=== PATIENT | male | born 1945 | race Caucasian/White ===

== ENCOUNTER 2019-07-14 05:40 | Inpatient (IN) ==
[2019-07-09 13:44] LABS: Appearance,Urine CLEAR; Bilirubin,Urine NEG (NEG); Color,Urine YELLOW; Culture Indicated,Urine NO; Glucose,Urine (UA) NEGATIVE (NEG); Ketones,Urine NEG (NEG); Leukocyte Esterase,Urine NEG /uL (NEG); Nitrate,Urine NEG (NEG); Protein,Urine NEG (NEG); Specific Gravity,Urine 1.026 (1.000-1.035); Urine Blood NEG mg/dL (<0.03); Urobilinogen,Urine NEG (NEG)
[2019-07-09 15:05] LABS: Basophils # (Auto) 0 K/mcL (0.0-0.3); Basophils % (Auto) 0.6 % (0.0-2.0); Eosinophils # (Auto) 0.2 K/mcL (0.0-0.7); Eosinophils % (Auto) 2.1 % (0.0-7.0); Hematocrit 42.2 % (41.0-55.0); Hemoglobin 13.8 g/dL (13.5-16.5); Lymphocytes # (Auto) 1.7 K/mcL (1.5-4.8); Lymphocytes % (Auto) 20.8 % (15.5-49.0); Mean Cell Volume 94.7 fL (80.0-100.0); Mean Corpuscular HGB Conc 32.8 g/dL (31.0-36.0); Mean Platelet Volume 10.3 fL (7.4-10.4); Monocytes # (Auto) 0.5 K/mcL (0.1-0.9); Monocytes % (Auto) 6.5 % (1.0-12.0); Platelet Count 206 K/mcL (140-440); RBC 4.45 M/mcL (4.50-5.90); Red Cell Distribution Width 12.5 % (11.5-14.5)
[2019-07-09 16:29] LABS: proBNP 794.6 pg/ml (0-125)
[2019-07-09 16:40] LABS: Blood Urea Nitrogen 25 mg/dl (8-23); Carbon Dioxide 26 mmol/L (22-30); Chloride 101 mmol/L (96-108); Glomerular Filtration Rate 66; Glucose 105 mg/dL (70-105)
[2019-07-14] MEDS ORDERED: SCOPOLAMINE 1 PATCH PATCH TOPICAL PRN (06:00)
[2019-07-14] MEDS ORDERED: PREGABALIN 75 MG CAPSULE PO SCH (06:00)
[2019-07-14] MEDS ORDERED: IPRATROPIUM/ALBUTEROL 3 ML AMPUL.NEB NEB PRN ×2 (06:00→09:34)
[2019-07-14] MEDS ORDERED: 0.9 % SODIUM CHLORIDE 9 ML, KETOROLAC 30 MG, ROPIVACAINE HCL/PF 49.5 ML, EPINEPHrine 0.... IJ SCH (06:00)
[2019-07-14] MEDS ORDERED: ACETAMINOPHEN 500 MG TABLET PO SCH (06:00)
[2019-07-14] MEDS ORDERED: oxyCODONE 10 MG TAB.ER.12H PO SCH (06:00)
[2019-07-14] MEDS ORDERED: CELECOXIB 200 MG CAPSULE PO SCH (06:00)
[2019-07-14] MEDS ORDERED: ceFAZolin 2 GM in DEXTROSE 5% IN WATER 50 ML IV SCH ×2 (06:15→17:30)
[2019-07-14] MEDS ORDERED: ONDANSETRON 4 MG/2 ML VIAL IV ONE (08:50)
[2019-07-14] MEDS ORDERED: DEXAMETHASONE 10 MG/ML VIAL IV ONE (08:50)
[2019-07-14] MEDS ORDERED: PROPOFOL 200 MG/20 ML VIAL IV ONE (08:50)
[2019-07-14] MEDS ORDERED: GLYCOPYRROLATE 0.2 MG/ML VIAL IV ONE (08:50)
[2019-07-14] MEDS ORDERED: KETAMINE 100 MG/ML ML IV ONE (08:50)
[2019-07-14] MEDS ORDERED: ePHEDrine 50 MG/ML AMPUL IV ONE (08:50)
[2019-07-14] MEDS ORDERED: TRANEXAMIC ACID 1,000 MG/10 ML VIAL IV ONE (08:50)
[2019-07-14] MEDS ORDERED: PHENYLEPHRINE 10 MG/ML VIAL IV ONE (08:50)
[2019-07-14] MEDS ORDERED: GENTAMICIN SULFATE 800 MG/20 ML VIAL IR ONE (09:13)
[2019-07-14] MEDS ORDERED: LACTATED RINGERS 250 ML IV PRN (09:34)
[2019-07-14] MEDS ORDERED: BENZOCAINE/MENTHOL 1 LOZENGE PO PRN ×2 (09:34→10:10)
[2019-07-14] MEDS ORDERED: FLUMAZENIL 0.1 MG/ML ML IV PRN (09:34)
[2019-07-14] MEDS ORDERED: NALOXONE HCL 0.4 MG/ML VIAL IV PRN (09:34)
[2019-07-14] MEDS ORDERED: METHOCARBAMOL 1,000 MG/10 ML VIAL IV PRN (09:34)
[2019-07-14] MEDS ORDERED: LABETALOL 5 MG/ML ML IV PRN (09:34)
[2019-07-14] MEDS ORDERED: METOPROLOL TARTRATE 5 MG/5 ML VIAL IV PRN (09:34)
[2019-07-14] MEDS ORDERED: ONDANSETRON 4 MG/2 ML VIAL IV PRN ×2 (09:34→10:10)
[2019-07-14] MEDS ORDERED: LACTATED RINGERS 1,000 ML IV SCH (09:45)
--- NOTE | 2019-07-14 10:09 | Brief Operative Note ---
Date of procedure: 07/14/19 Pre-op diagnosis: right hip djd severe Post-op diagnosis: same Procedure: Right total hip Grafts/Implants: Yes Anesthesia: ALFREDA Surgeon: Tc Singletary Rewriter: Berto Hanson Estimated blood loss (cc): 100 Specimens Removed/Pathology: none sent Condition: stable Disposition: PACU
[2019-07-14] MEDS ORDERED: POLYETHYLENE GLYCOL 3350 17 GM PACKET PO PRN (10:10)
[2019-07-14] MEDS ORDERED: BISACODYL 10 MG SUPP.RECT PR PRN (10:10)
[2019-07-14] MEDS ORDERED: TRANEXAMIC ACID 1,000 MG/10 ML VIAL IV SCH (10:10)
[2019-07-14] MEDS ORDERED: HYDROmorphone 2 MG/ML VIAL IV PRN (10:10)
[2019-07-14] MEDS ORDERED: oxyCODONE/APAP 5/325MG TABLET PO PRN (10:10)
[2019-07-14] MEDS ORDERED: MAGNESIUM HYDROXIDE 30 ML ORAL.SUSP PO PRN (10:10)
[2019-07-14] MEDS ORDERED: FLEETS ADULT ENEMA PR PRN (10:10)
--- NOTE | 2019-07-14 10:18 | XRay Report ---
CLINICAL INFORMATION: right total hip arthroplasty COMPARISON: None. FINDINGS: The intraoperative film shows femoral stem template and prosthetic acetabulum to the anatomically aligned. There is severe degenerative change in the nonsurgerized contralateral hip IMPRESSION: Intraoperative film as described Interpreted and Authenticated by: Nate Bower 07/14/19
[2019-07-14] MEDS: LACTATED RINGERS 1,000 ML IV SCH ×3 (11:09→21:42)
--- NOTE | 2019-07-14 11:18 | XRay Report ---
CLINICAL INFORMATION: Post-op Total Hip COMPARISON: None. FINDINGS: Right total hip prosthesis is in near anatomic alignment. Severe left hip degeneration noted. Mild degenerative changes both SI joints appreciated. No osseous abnormalities. IMPRESSION: Right hip prosthesis in near-anatomic alignment severe left hip degeneration Interpreted and Authenticated by: Nate Bower 07/14/19
--- NOTE | 2019-07-14 11:44 | Discharge Summary ---
Ortho Discharge - [facility] - Patient Instructions Diet: Regular Diet Activity: activity as tolerated, weight bearing as tolerated Total Hip Protocol: Follow activity instructions as provided by Physical Therapy. Dressing Care: May shower in 2 days - Follow Up Plan Disposition: Home, Self-Care Prognosis: Good Rehab Potential: Fair I certify that the patient requires SNF services: Yes Overall status at discharge: patient is progressing back to baseline - Orders For Discharge Prescriptions: Docusate Sodium [Colace] 100 mg PO BID #60 capsule Aspirin [Ecotrin] 325 mg PO BID #60 tab.ec oxyCODONE/APAP [Percocet 5-325 mg] 1 - 2 tab PO Q4HP PRN #75 tablet PRN Reason: Per Pain Protocol
[2019-07-14] MEDS: 0.9 % SODIUM CHLORIDE 10 ML SYRINGE IV SCH ×2 (14:17→21:44)
--- NOTE | 2019-07-14 15:52 | Operative Note ---
DATE OF OPERATION: 07/14/2019 PREOPERATIVE DIAGNOSIS: Right hip degenerative arthritis, severe. POSTOPERATIVE DIAGNOSIS: Right hip degenerative arthritis, severe. PROCEDURE: Right total hip arthroplasty. SURGEON: Tc Singletary M.D. REFLECTOR DRILLER AND DEBURRER: Berto Hanson PA-C. The PA's assistance was required for the safe and efficient completion of the entire case. This provider's expertise and technical skill were required throughout the case. The PA assisted with preoperative coordination, intraoperative retraction, wound closure, dressing and splint application, as well as postoperative documentation and care coordination. ANESTHESIA: General LMA anesthesia. COMPLICATIONS: None. ESTIMATED BLOOD LOSS: About 100 mL. DESCRIPTION OF PROCEDURE: The patient was brought to the operating room and put to sleep with general LMA anesthesia. Once asleep, the patient had the right hip sterilely prepped and draped in the usual sterile fashion and turned into a left lateral position. Once this was done, we made a superior approach to the hip. A direct superior approach was performed. We released the superior capsule, dislocated the hip superiorly. There was severe deformity of the femoral head and a significant shortening of the leg as well. We then reamed up the acetabulum to a 56. A 56 cup was placed with a 30 mm screw with good fixation. A hooded liner was placed. We then prepared the femur. This was broached up for a size 12 stem. A size 12 stem with high offset and a 36 mm +6 neck length seemed to be the most appropriate, equaling his tension on his hip. This was very stable. We took an x-ray to confirm the alignment. It lengthened him longer than his other side, but his other side is worn out by about 1/4-inch as well, so we proceeded with the final implant. Final implant was then placed with a small amount of cement on the distal fragment. This was a size 12 ODC stem with a high-offset +6 ceramic 36 mm head. This was reduced and very stable. We irrigated thoroughly and stability was up to 90 degrees of rotation with 90 degrees of flexion. We irrigated and closed the capsule after thorough debridement and repair of the capsule with #1 Stratafix. We closed the skin with Stratafix and adhesive closure. The patient tolerated this well. Blood loss was about 100 mL. RBSarah:chele Job ID: [id number] Doc ID: [id number] Tc Singletary MD
[2019-07-14] MEDS ORDERED: TEMAZEPAM 15 MG CAPSULE PO PRN (21:00)
[2019-07-14] MEDS: ATORVASTATIN 20 MG TABLET PO SCH (21:20)
[2019-07-14] MEDS: SENNOSIDES 1 TABLET PO SCH (21:20)
[2019-07-14] MEDS: ASPIRIN 325 MG ENTERIC COATED TABLET PO SCH (21:21)
[2019-07-14] MEDS: ceFAZolin 1 GM VIAL IV SCH (21:21)
[2019-07-14] MEDS: DOCUSATE SODIUM 100 MG CAPSULE PO SCH (21:21)
[2019-07-14] MEDS: diphenhydrAMINE 25 MG CAPSULE PO PRN (21:21)
[2019-07-14] MEDS: KETOROLAC 15 MG/ML VIAL IV PRN (21:22)
[2019-07-15] MEDS: ceFAZolin 1 GM VIAL IV SCH (03:57)
--- NOTE | 2019-07-15 07:27 | Orthopedic Progress Note ---
Subjective Patient information: Note initiated : 07/15/19 at 7:26 am Service Date, if different from initiated Date: [] Patient: Jose Singh 74 y/o M admitted on 07/14/19 for Right Total Hip Arthroplasty. Chief Complaint: [Pt is stable this morning on post operative day 1 without any significant concerns or complaints. Patients vital signs have remained stable. Patients dressing is dry and is grossly intact from a neurovascular and motor standpoint. Patients 10 point ROS is otherwise negative. ] Objective Vital signs: Vital Signs Temp Pulse Resp BP BP Pulse Ox 07/15/19 07:04 98.2 F 81 16 108/65 95 07/15/19 06:00 95 07/15/19 03:03 98.3 F 83 20 102/67 95 07/15/19 02:35 93 07/14/19 22:26 97.4 F 88 20 93/61 93 07/14/19 19:23 18 07/14/19 19:07 98.0 F 102 H 22 96/63 94 07/14/19 16:00 97.4 F 97 H 18 110/74 94 07/14/19 14:00 94 07/14/19 12:48 102 H 112/74 95 07/14/19 12:18 103 H 108/65 95 07/14/19 12:03 94 07/14/19 11:47 100 H 106/73 90 07/14/19 11:33 99 H 111/72 91 07/14/19 11:18 89 100/65 96 07/14/19 11:03 94 H 105/70 94 07/14/19 10:45 98.0 F 89 13 108/63 96 07/14/19 10:30 98.2 F 92 H 17 102/62 98 07/14/19 10:25 82 12 110/64 100 07/14/19 10:20 81 11 L 114/67 100 07/14/19 10:15 98.7 F 91 H 14 113/65 98 Intake and Output 07/14/19 07/15/19 07/15/19 21:59 05:59 13:59 Intake Total 1690 685 Output Total 80 Balance 1690 605 Intake: IV 410 Lactated Ringers 1,000 ml @ 100 410 mls/hr IV .Q10H [facility] Rx#: [id number] Oral 1280 685 Output: Void Amount 80 Other: Meal Dinner Percent of Meal Consumed 100% Feeding Ability Independent Urine Appearance Clear Urine Color Dark Yellow Weight 201 lb 189 lb Intake & Output: Intake & Output 07/14/19 07/15/19 07/15/19 21:59 05:59 13:59 Intake Total 1690 685 Output Total 80 Balance 1690 605 Weight 201 lb 189 lb Intake: IV 410 Lactated Ringers 1,000 ml @ 100 410 mls/hr IV .Q10H [facility] Rx#: [id number] Oral 1280 685 Output: Void Amount 80 Other: Meal Dinner Percent of Meal Consumed 100% Feeding Ability Independent Urine Appearance Clear Urine Color Dark Yellow Incision: Yes healing Incision clean and dry: Yes Dressing: Yes clean Weight bearing status: full Neurological exam IM: Yes motor sensory intact, Yes neurovascular intact Extremities exam IM: Yes Foot pink and warm, Yes neurovascular intact - Labs CBC & BMP: 07/15/19 04:25 07/09/19 11:28 Labs: 07/15/19 07/09/19 04:25 11:28 Hgb 13.8 Hct 32.3 L 42.2 Assessment and Plan (1) Hx of total hip arthroplasty The patient has been educated regarding dressing care, Physical Therapy recommendations, home exercises, restrictions, and follow up appointments. The patient has had all necessary DME prescribed. The patient has remained relatively stable during their hospital course. Leave Dermabond patch intact until followup Status: Acute
[2019-07-15] MEDS: FERROUS SULFATE 325 MG TABLET PO SCH (08:10)
[2019-07-15] MEDS: LACTATED RINGERS 1,000 ML IV SCH ×2 (08:46→15:50)
[2019-07-15] MEDS: 0.9 % SODIUM CHLORIDE 10 ML SYRINGE IV SCH ×3 (08:47→21:18)
[2019-07-15] MEDS ORDERED: ACETAMINOPHEN 1300 MG PO SCH (09:00)
[2019-07-15] MEDS ORDERED: ASPIRIN 325 MG PO SCH (09:00)
[2019-07-15] MEDS: DOCUSATE SODIUM 100 MG CAPSULE PO SCH ×2 (09:10→20:09)
[2019-07-15] MEDS: ASPIRIN 325 MG ENTERIC COATED TABLET PO SCH ×2 (09:10→20:09)
[2019-07-15] MEDS: FAMOTIDINE 20 MG TABLET PO SCH (09:10)
[2019-07-15] MEDS: DILTIAZEM 120 MG CAP.XL.24H PO SCH (09:10)
[2019-07-15] MEDS: FUROSEMIDE 40 MG TABLET PO SCH (09:11)
[2019-07-15] MEDS ORDERED: FLU VACC QS2019-20(6MOS UP)/PF 60 MCG/0.5 ML SYRINGE IM ONE (10:00)
[2019-07-15] MEDS: CALCIUM CARBONATE 500 MG TAB.CHEW PO PRN (13:57)
[2019-07-15] MEDS: ATORVASTATIN 20 MG TABLET PO SCH (20:09)
[2019-07-15] MEDS: ACETAMINOPHEN 325 MG TABLET PO PRN (20:09)
[2019-07-15] MEDS: SENNOSIDES 1 TABLET PO SCH (20:09)
[2019-07-15] MEDS: diphenhydrAMINE 25 MG CAPSULE PO PRN (20:10)
[2019-07-15] MEDS: KETOROLAC 15 MG/ML VIAL IV PRN (20:10)
--- NOTE | 2019-07-16 07:54 | Orthopedic Progress Note ---
Subjective Patient information: Note initiated : 07/16/19 at 7:53 am Service Date, if different from initiated Date: [] Patient: Jose Singh 74 y/o M admitted on 07/14/19 for Right Total Hip Arthroplasty. Chief Complaint: [Pt is stable this morning on post operative day 2 without any significant concerns or complaints. Patients vital signs have remained stable. Patients dressing is dry and is grossly intact from a neurovascular and motor standpoint. Patients 10 point ROS is otherwise negative. ] Objective Vital signs: Vital Signs Temp Pulse Resp BP BP Pulse Ox 07/16/19 03:41 98.1 F 80 22 113/69 96 07/16/19 00:31 97.7 F 75 20 107/70 95 07/15/19 18:46 97.9 F 77 24 H 96/66 97 07/15/19 17:30 96 07/15/19 15:42 98 07/15/19 15:40 97.3 F 82 20 102/60 97 07/15/19 14:00 97 07/15/19 12:00 99 07/15/19 10:50 97.9 F 76 18 100/64 96 07/15/19 10:00 96 07/15/19 08:00 96 Intake and Output 07/15/19 07/16/19 07/16/19 21:59 05:59 13:59 Intake Total 100 Output Total 480 825 Balance -480 -725 Intake: Oral 100 Output: Void Amount 480 825 Other: Urine Appearance Clear Clear Urine Color Dark Yellow Bright Yellow Urine Odor Normal Normal Weight 203 lb 8 oz Intake & Output: Intake & Output 07/15/19 07/16/19 07/16/19 21:59 05:59 13:59 Intake Total 100 Output Total 480 825 Balance -480 -725 Weight 203 lb 8 oz Intake: Oral 100 Output: Void Amount 480 825 Other: Urine Appearance Clear Clear Urine Color Dark Yellow Bright Yellow Urine Odor Normal Normal Incision: Yes healing Incision clean and dry: Yes Dressing: Yes clean Weight bearing status: full Neurological exam IM: Yes motor sensory intact, Yes neurovascular intact - Labs CBC & BMP: 07/15/19 04:25 07/09/19 11:28 Labs: 07/15/19 07/09/19 04:25 11:28 Hgb 13.8 Hct 32.3 L 42.2 Assessment and Plan (1) Hx of total hip arthroplasty The patient has been educated regarding dressing care, Physical Therapy recommendations, home exercises, restrictions, and follow up appointments. The patient has had all necessary DME prescribed. The patient has remained relatively stable during their hospital course. Leave Dermabond patch intact until followup Status: Acute
[2019-07-16] MEDS: ASPIRIN 325 MG ENTERIC COATED TABLET PO SCH ×2 (08:36→20:01)
[2019-07-16] MEDS: DILTIAZEM 120 MG CAP.XL.24H PO SCH (08:36)
[2019-07-16] MEDS: FAMOTIDINE 20 MG TABLET PO SCH (08:37)
[2019-07-16] MEDS: 0.9 % SODIUM CHLORIDE 10 ML SYRINGE IV SCH ×3 (08:38→20:02)
[2019-07-16] MEDS: ACETAMINOPHEN 325 MG TABLET PO PRN ×2 (08:38→20:02)
[2019-07-16] MEDS: FERROUS SULFATE 325 MG TABLET PO SCH (08:39)
[2019-07-16] MEDS: FUROSEMIDE 40 MG TABLET PO SCH (08:39)
[2019-07-16] MEDS: DOCUSATE SODIUM 100 MG CAPSULE PO SCH ×2 (08:39→20:15)
[2019-07-16] MEDS: CALCIUM CARBONATE 500 MG TAB.CHEW PO PRN (15:42)
[2019-07-16] MEDS: diphenhydrAMINE 25 MG CAPSULE PO PRN (20:02)
[2019-07-16] MEDS: ATORVASTATIN 20 MG TABLET PO SCH (20:02)
[2019-07-16] MEDS: SENNOSIDES 1 TABLET PO SCH (20:15)
[2019-07-17] MEDS: ACETAMINOPHEN 325 MG TABLET PO PRN ×2 (05:50→20:43)
[2019-07-17] MEDS: 0.9 % SODIUM CHLORIDE 10 ML SYRINGE IV SCH ×3 (05:51→21:36)
[2019-07-17] MEDS: DILTIAZEM 120 MG CAP.XL.24H PO SCH (08:40)
[2019-07-17] MEDS: FAMOTIDINE 20 MG TABLET PO SCH (08:40)
[2019-07-17] MEDS: ASPIRIN 325 MG ENTERIC COATED TABLET PO SCH ×2 (08:41→20:43)
[2019-07-17] MEDS: FUROSEMIDE 40 MG TABLET PO SCH (08:49)
[2019-07-17] MEDS: FERROUS SULFATE 325 MG TABLET PO SCH (08:49)
[2019-07-17] MEDS: DOCUSATE SODIUM 100 MG CAPSULE PO SCH ×2 (08:49→19:05)
[2019-07-17] MEDS: SENNOSIDES 1 TABLET PO SCH (19:05)
[2019-07-17] MEDS: diphenhydrAMINE 25 MG CAPSULE PO PRN (20:43)
[2019-07-17] MEDS: ATORVASTATIN 20 MG TABLET PO SCH (20:43)
[2019-07-18] MEDS: 0.9 % SODIUM CHLORIDE 10 ML SYRINGE IV SCH (05:30)
[2019-07-18] MEDS: DILTIAZEM 120 MG CAP.XL.24H PO SCH (08:12)
[2019-07-18] MEDS: FAMOTIDINE 20 MG TABLET PO SCH (08:12)
[2019-07-18] MEDS: ACETAMINOPHEN 325 MG TABLET PO PRN (08:13)
[2019-07-18] MEDS: ASPIRIN 325 MG ENTERIC COATED TABLET PO SCH (08:13)
[2019-07-18] MEDS: FERROUS SULFATE 325 MG TABLET PO SCH (09:31)
[2019-07-18] MEDS: FUROSEMIDE 40 MG TABLET PO SCH (09:32)
[2019-07-18] MEDS: DOCUSATE SODIUM 100 MG CAPSULE PO SCH (09:32)
[2019-07-18] MEDS ORDERED: PNEUMOCOCCAL 23-VAL P-SAC VAC 0.5 ML SYRINGE IM ONE (10:00)
--- NOTE | 2019-07-28 08:10 | Discharge Summary ---
DATE OF ADMISSION: 07/14/2019 DATE OF DISCHARGE: 07/18/2019 ADMITTING DIAGNOSIS: Severe right hip degenerative osteoarthritis. DISCHARGE DIAGNOSIS: Severe right hip degenerative osteoarthritis status post right total hip arthroplasty. DISCHARGE CONDITION: Stable. CONSULTATIONS: None. PROCEDURE PERFORMED: Right total hip arthroplasty was completed on the date of admission. The procedure went without complications and there was minimal blood loss. Following the procedure the patient was taken to recovery room in stable condition. When deemed stable, was taken to the hospital floor for further observation and recovery. HISTORY OF PRESENT ILLNESS: This pleasant patient has exhausted conservative care measures in the office that has included trials with anti-inflammatories, pain medications, injections and physical therapy. The patient has discussed non-operative and operative options with Dr. Singletary at length. Due to the exhausting conservative measures the patient desired to proceed forth with operative care. HOSPITAL COURSE: The patient remained stable throughout the hospital course and exhibited normal neurovascular examinations throughout the stay. The patient worked with physical therapy per standard protocols. The patient had no incidents during the hospital course. The patient also had a stable physical exam upon discharge. DISCHARGE PHYSICAL EXAMINATION: VITAL SIGNS: Stable as above. GENERAL: Patient is awake, alert and oriented x3. HEENT: Head was normocephalic. NECK: Supple, no adenopathy or thyromegaly. CHEST: CTA, no wheezing, rhonchi or rales. HEART: NSR, no gallops, rubs or murmurs. MUSCULOSKELETAL: Lower extremities revealed grossly intact motor exam. NEUROLOGIC: Deep tendon response and light touch, motor, neurosensory exam was stable. SKIN: The incision was intact and the dressing had been changed to the Acticoat dressing. There were no abnormal skin markings, lesions, erythema, rashes or other skin breakdown. DISCHARGE INSTRUCTIONS/MEDICATIONS: The patient received our standard written discharge instruction sheet. These instructions included information regarding weightbearing status, activity level, diet, wound care, physical therapy instructions, bathing restrictions, shower recommendations, follow-up guidelines, driving restrictions and monitoring the wound for signs of infection that could include but not necessarily to fevers above 101.5, sweats, chills, redness, increased pain or drainage. Should any of these occur the patient was educated to contact our office at once. MEDICATIONS: The patient was restarted on normal primary care medications. Patient was also prescribed [place] 10/325 mg with instructions for 1 to 2 tabs by mouth every 4 to 6 hours as needed for pain, quantity 75 with 2 refills. The patient will be placed on 325 mg aspirin, 1 a day for 30 days post-surgery. [facility] will monitor the patient's PT/INR. FOLLOWUP: Patient will follow up at [facility] 2 weeks from surgery for a postop wound check and staple removal. They will be able to certain follow up sooner with any problems or concerns. The patient did not meet the discharge criteria for home, and was discharged to a half-way facility. BAP:katina Job ID: [id number] Doc ID: [id number] Berto Hanson PA-C
== END 2019-07-18 09:20 | disposition home or self-care (01) | DRG 470 ==
LOC: MEDSUR 05:40
PROVIDERS: ADMIT Orthopaedic Surgery; ATTEND Orthopaedic Surgery

== ENCOUNTER 2019-10-06 07:25 | Inpatient (IN) ==
[2019-09-30 13:38] LABS: Basophils # (Auto) 0.03 K/mcL (0.00-0.30); Basophils % (Auto) 0.4 % (0.0-2.0); Eosinophils # (Auto) 0.23 K/mcL (0.00-0.70); Granulocytes % (Auto) 53.3 % (38.0-78.0); Hematocrit 43.5 % (40.1-51.0); Hemoglobin 14.1 g/dL (13.7-17.5); Lymphocytes # (Auto) 2.59 K/mcL (1.50-4.80); Lymphocytes % (Auto) 34.3 % (15.5-49.0); Mean Cell Volume 96.7 fL (80.0-100.0); Mean Corpuscular HGB Conc 32.4 g/dL (31.0-36.0); Mean Platelet Volume 10.9 fL (7.4-10.4); Monocytes # (Auto) 0.68 K/mcL (0.10-0.90); Platelet Count 245 K/mcL (140-440); Red Cell Distribution Width 12.3 % (11.5-14.5); WBC 7.6 K/mcL (4.50-11.00)
[2019-09-30 13:55] LABS: Prothrombin Time 13.7 sec (11.9-14.5)
[2019-09-30 14:16] LABS: Blood Urea Nitrogen 26 mg/dl (8-23); Calcium 9.6 mg/dl (8.6-10.4); Carbon Dioxide 27 mmol/L (22-30); Chloride 101 mmol/L (96-108); Glomerular Filtration Rate 74; Glucose 90 mg/dL (70-105)
[2019-09-30 15:34] LABS: Appearance,Urine CLEAR; Bilirubin,Urine NEG (NEG); Color,Urine YELLOW; Culture Indicated,Urine NO; Glucose,Urine (UA) NEGATIVE (NEG); Ketones,Urine NEG (NEG); Leukocyte Esterase,Urine NEG /uL (NEG); Nitrate,Urine NEG (NEG); Protein,Urine NEG (NEG); Specific Gravity,Urine 1.024 (1.000-1.035); Urine Blood NEG mg/dL (<0.03); Urobilinogen,Urine NEG (NEG)
[~2019-10-06 07:25] MED LIST: 0.9 % SODIUM CHLORIDE 9 ML, KETOROLAC 30 MG, ROPIVACAINE HCL/PF 49.5 ML, EPINEPHrine 0.... IJ SCH; ACETAMINOPHEN 500 MG TABLET PO SCH; CELECOXIB 200 MG CAPSULE PO SCH; PREGABALIN 75 MG CAPSULE PO SCH; ceFAZolin 2 GM in DEXTROSE 5% IN WATER 50 ML IV SCH; oxyCODONE 10 MG TAB.ER.12H PO SCH
[2019-10-06] MEDS ORDERED: IPRATROPIUM/ALBUTEROL 3 ML AMPUL.NEB NEB PRN (08:00)
[2019-10-06] MEDS ORDERED: SCOPOLAMINE 1 PATCH PATCH TOPICAL PRN (08:00)
[2019-10-06] MEDS ORDERED: GENTAMICIN SULFATE 800 MG/20 ML VIAL IR ONE (09:10)
[2019-10-06] MEDS ORDERED: ESMOLOL 100 MG/10 ML VIAL IV ONE (10:00)
[2019-10-06] MEDS ORDERED: DEXAMETHASONE 10 MG/ML VIAL IV ONE (10:00)
[2019-10-06] MEDS ORDERED: GLYCOPYRROLATE 0.2 MG/ML VIAL IV ONE (10:00)
[2019-10-06] MEDS ORDERED: KETAMINE 100 MG/ML ML IV ONE (10:00)
[2019-10-06] MEDS ORDERED: PHENYLEPHRINE 10 MG/ML VIAL IV ONE (10:00)
[2019-10-06] MEDS ORDERED: ONDANSETRON 4 MG/2 ML VIAL IV ONE (10:00)
[2019-10-06] MEDS ORDERED: ROPIVACAINE HCL/PF 30 ML VIAL IJ ONE (10:00)
[2019-10-06] MEDS ORDERED: TRANEXAMIC ACID 1,000 MG/10 ML VIAL IV ONE (10:00)
[2019-10-06] MEDS ORDERED: PROPOFOL 200 MG/20 ML VIAL IV ONE (10:00)
[2019-10-06] MEDS ORDERED: LIDOCAINE HCL/PF 100 MG/5 ML SYRINGE IV ONE (10:00)
--- NOTE | 2019-10-06 11:19 | Brief Operative Note ---
Date of procedure: 10/06/19 Pre-op diagnosis: left hip djd severe Post-op diagnosis: same Procedure: left total hip styker Grafts/Implants: Yes Anesthesia: GETA Complications Description: 10/06/19 11:18 none Surgeon: Tc Singletary Computer Forensics Examiner: Felipe Lopez Estimated blood loss (cc): 120 Tourniquet Time (Minutes): 0 Specimens Removed/Pathology: none sent Condition: stable Disposition: PACU
[2019-10-06] MEDS ORDERED: HYDROmorphone 2 MG/ML VIAL IV PRN (11:20)
[2019-10-06] MEDS ORDERED: ONDANSETRON 4 MG/2 ML VIAL IV PRN (11:20)
[2019-10-06] MEDS ORDERED: TRANEXAMIC ACID 1,000 MG/10 ML VIAL IV SCH (11:20)
[2019-10-06] MEDS ORDERED: MAGNESIUM HYDROXIDE 30 ML ORAL.SUSP PO PRN (11:20)
[2019-10-06] MEDS ORDERED: FLEETS ADULT ENEMA PR PRN (11:20)
[2019-10-06] MEDS ORDERED: BISACODYL 10 MG SUPP.RECT PR PRN (11:20)
[2019-10-06] MEDS ORDERED: POLYETHYLENE GLYCOL 3350 17 GM PACKET PO PRN (11:20)
[2019-10-06] MEDS ORDERED: KETOROLAC 15 MG/ML VIAL IV PRN (11:20)
[2019-10-06] MEDS ORDERED: BENZOCAINE/MENTHOL 1 LOZENGE PO PRN (11:20)
--- NOTE | 2019-10-06 11:45 | Operative Note ---
DATE OF OPERATION: 10/06/2019 PREOPERATIVE DIAGNOSIS: Left hip degenerative arthritis, severe. POSTOPERATIVE DIAGNOSIS: Left hip degenerative arthritis, severe. PROCEDURE: Left hip total hip arthroplasty from a superior approach using Tarun components with cementless components. SURGEON: Tc Singletary M.D. [place]APOK MACHINE OPERATOR: Felipe Lopez PA-C. The PA's assistance was required for the safe and efficient completion of the entire case. This provider's expertise and technical skill were required throughout the case. The PA assisted with preoperative coordination, intraoperative retraction, wound closure, dressing and splint application, as well as postoperative documentation and care coordination. ANESTHESIA: General LMA anesthesia. COMPLICATIONS: None. ESTIMATED BLOOD LOSS: About 120 mL. DESCRIPTION OF PROCEDURE: The patient was brought to the operating room and put to sleep with general LMA anesthesia. Once asleep, a timeout was performed. We confirmed the operative site by initials, consent form, and x-rays. Once this was confirmed as the operative site, we then made a superior approach to the hip. We dissected through the fascial layer and exposed the posterior capsule. This was released. Piriformis was released as well as the superior capsule. We then exposed the joint and dislocated the femoral head. Once this was dislocated, we made our neck cut at 32 mm in length. I then prepared the acetabulum by reaming up to the size of 60. A 60 mm cup was placed and a 30 mm screw was used to fix this. This was placed at 30 to 40 degrees of inclination and 20 degrees of anteversion. A hooded liner was placed for a 36 mm ball. I then was able to broach the femur up to the size 6 stem. An x-ray was taken with a size 5 stem. This was countersunk to give equal leg length and offset. Once done, we used a size 7.5 ball. I placed a size [address] after distally reaming. A small amount of cement distally was used to secure the stem. This was put into place and a +7.5 neck length with a 36 mm ball gave equal leg lengths and symmetric alignment. The hip was very stable, even up to 90 degrees of internal rotation with adduction and internal rotation. We irrigated, repaired the capsule, and repaired the fascial layer with #1 Stratafix. We injected the soft tissues with 30 mL of 0.5% Marcaine in post-inject formula. The skin was closed with Stratafix. Adhesive closure was used to close the skin. Sterile bandage was applied. Blood loss was about 120 mL. PEDRO:chele Job ID: [id number] Doc ID: [id number] Tc Singletary MD
--- NOTE | 2019-10-06 12:09 | XRay Report ---
CLINICAL INFORMATION: Postsurgical follow-up TECHNIQUE: AP pelvis. AP and crosstable lateral left hip COMPARISON: Previous AP pelvis dated 07/14/2019 FINDINGS: Bilateral total hip arthroplasties. Present examination is performed after left total hip arthroplasty. Alignment is anatomic. There is postsurgical soft tissue and intra-articular gas. IMPRESSION: Left total hip arthroplasty Interpreted and Authenticated by: Nate Pedro 10/06/19
[2019-10-06] MEDS: LACTATED RINGERS 1,000 ML IV SCH ×2 (12:37→23:04)
[2019-10-06] MEDS: HYDROcodone/APAP 10/325MG TABLET PO PRN (13:28)
[2019-10-06] MEDS: 0.9 % SODIUM CHLORIDE 10 ML SYRINGE IV SCH ×2 (13:30→21:01)
[2019-10-06] MEDS: ceFAZolin 1 GM VIAL IV SCH (16:20)
[2019-10-06] MEDS ORDERED: TEMAZEPAM 15 MG CAPSULE PO PRN (21:00)
[2019-10-06] MEDS: SENNOSIDES 1 TABLET PO SCH (21:01)
[2019-10-06] MEDS: DOCUSATE SODIUM 100 MG CAPSULE PO SCH (21:01)
[2019-10-06] MEDS: ASPIRIN 325 MG ENTERIC COATED TABLET PO SCH (21:01)
[2019-10-07] MEDS: HYDROcodone/APAP 10/325MG TABLET PO PRN ×4 (00:57→20:49)
[2019-10-07] MEDS: ceFAZolin 1 GM VIAL IV SCH (01:04)
[2019-10-07] MEDS: 0.9 % SODIUM CHLORIDE 10 ML SYRINGE IV SCH ×3 (05:26→20:50)
[2019-10-07] MEDS: LACTATED RINGERS 1,000 ML IV SCH ×2 (07:35→16:37)
--- NOTE | 2019-10-07 08:03 | Orthopedic Progress Note ---
Subjective Patient information: Note initiated : 10/07/19 at 8:01 am Service Date, if different from initiated Date: [] Patient: Jose Singh 74 y/o M admitted on for Left Total Hip Arthroplasty. Chief Complaint: [Slow to ambulate as this is his second total hip but no nausea or vomiting and he does also has urination retention] Objective Vital signs: Vital Signs Temp Pulse Resp BP Pulse Ox 10/07/19 04:01 97.5 F 78 12 125/80 97 10/06/19 23:01 98.8 F 79 12 115/79 96 10/06/19 18:52 97.7 F 89 12 133/87 97 10/06/19 16:00 97.3 F 80 18 133/92 94 10/06/19 15:15 92 H 18 154/97 96 10/06/19 14:15 92 H 18 151/103 96 10/06/19 13:30 74 16 137/87 93 10/06/19 13:00 73 14 131/89 97 10/06/19 12:45 70 14 127/85 98 10/06/19 12:30 73 14 137/86 99 10/06/19 12:15 97.0 F 76 14 127/83 98 10/06/19 12:03 98.8 F 84 17 116/75 100 10/06/19 11:53 85 17 125/78 99 10/06/19 11:40 97.0 F 79 12 116/75 100 10/06/19 11:35 75 11 L 113/61 100 10/06/19 11:30 78 16 117/70 100 10/06/19 11:28 97.0 F 79 12 118/68 100 Intake and Output 10/06/19 10/07/19 10/07/19 21:59 05:59 13:59 Intake Total 1139 275 Output Total 750 200 Balance 389 75 Intake: IV 539 Lactated Ringers 1,000 ml @ 100 539 mls/hr IV .Q10H [facility] Rx#: [id number] Oral 600 275 Output: Urine Catheter Amount 750 Void Amount 200 Other: Meal Lunch Percent of Meal Consumed 100% Urine Appearance Clear Clear Urine Color Dark Yellow Dark Yellow Urine Odor Normal # Voids 1 Weight 213 lb 12.8 oz Intake & Output: Intake & Output 10/06/19 10/07/19 10/07/19 21:59 05:59 13:59 Intake Total 1139 275 Output Total 750 200 Balance 389 75 Weight 213 lb 12.8 oz Intake: IV 539 Lactated Ringers 1,000 ml @ 100 539 mls/hr IV .Q10H [facility] Rx#: [id number] Oral 600 275 Output: Urine Catheter Amount 750 Void Amount 200 Other: Meal Lunch Percent of Meal Consumed 100% Urine Appearance Clear Clear Urine Color Dark Yellow Dark Yellow Urine Odor Normal # Voids 1 Incision: Yes healing Incision clean and dry: Yes Dressing: Yes clean Weight bearing status: full Neurological exam IM: Yes alert, Yes oriented X3, Yes neurovascular intact Extremities exam IM: Yes Foot pink and warm, Yes neurovascular intact - Labs CBC & BMP: 09/30/19 11:56 09/30/19 11:56 Labs: Orthopedic Labs 09/30/19 11:56 PT 13.7 INR 1.0 APTT 33 09/30/19 11:56 Hgb 14.1 Hct 43.5
[2019-10-07] MEDS: DOCUSATE SODIUM 100 MG CAPSULE PO SCH ×2 (08:23→20:49)
[2019-10-07] MEDS: ASPIRIN 325 MG ENTERIC COATED TABLET PO SCH ×2 (08:23→20:49)
[2019-10-07] MEDS ORDERED: CALCIUM CARBONATE 500 MG TAB.CHEW CHEWED PRN (15:42)
[2019-10-07] MEDS: SENNOSIDES 1 TABLET PO SCH (20:49)
[2019-10-07] MEDS ORDERED: FAMOTIDINE 20 MG TABLET PO SCH (21:00)
[2019-10-08] MEDS: HYDROcodone/APAP 10/325MG TABLET PO PRN ×4 (00:50→15:08)
[2019-10-08] MEDS: LACTATED RINGERS 1,000 ML IV SCH ×2 (04:12→18:36)
[2019-10-08] MEDS: 0.9 % SODIUM CHLORIDE 10 ML SYRINGE IV SCH ×3 (07:49→22:35)
[2019-10-08] MEDS: DOCUSATE SODIUM 100 MG CAPSULE PO SCH ×2 (09:25→22:34)
[2019-10-08] MEDS: ASPIRIN 325 MG ENTERIC COATED TABLET PO SCH ×2 (09:25→22:35)
[2019-10-08] MEDS: FAMOTIDINE 20 MG TABLET PO SCH (10:43)
--- NOTE | 2019-10-08 15:44 | Orthopedic Progress Note ---
Subjective Patient information: Note initiated : 10/08/19 at 3:42 pm Service Date, if different from initiated Date: [] Patient: Jose Singh 74 y/o M admitted on 10/07/19 for Left Total Hip Arthroplasty. Chief Complaint: Slow to walk and requires assist 1 and walker and no cp or sob he is starting to void[] Objective Vital signs: Vital Signs Temp Pulse Resp BP Pulse Ox 10/08/19 12:00 98.3 F 83 14 110/74 98 10/08/19 08:00 97.2 F 95 H 14 115/69 95 10/08/19 03:49 97.4 F 77 14 121/78 96 10/07/19 23:20 97.2 F 73 12 102/60 94 10/07/19 19:24 97.4 F 83 24 H 104/64 96 10/07/19 16:00 98.5 F 70 12 134/74 95 Intake and Output 10/08/19 10/08/19 10/08/19 05:59 13:59 21:59 Intake Total 400 640 Output Total 475 50 Balance -75 640 -50 Intake: Oral 400 640 Output: Void Amount 475 50 Other: Meal Lunch Percent of Meal Consumed 100% Urine Appearance Clear Urine Color Bright Yellow Urine Odor Normal # Voids 1 1 Intake & Output: Intake & Output 10/08/19 10/08/19 10/08/19 05:59 13:59 21:59 Intake Total 400 640 Output Total 475 50 Balance -75 640 -50 Intake: Oral 400 640 Output: Void Amount 475 50 Other: Meal Lunch Percent of Meal Consumed 100% Urine Appearance Clear Urine Color Bright Yellow Urine Odor Normal # Voids 1 1 Incision: Yes healing Incision clean and dry: Yes Dressing: Yes clean Weight bearing status: full Neurological exam IM: Yes alert, Yes oriented X3, Yes neurovascular intact Extremities exam IM: Yes Foot pink and warm, Yes neurovascular intact (Plan is snf on sunday dc on sunday) - Labs CBC & BMP: 09/30/19 11:56 09/30/19 11:56 Labs: Orthopedic Labs 09/30/19 11:56 PT 13.7 INR 1.0 APTT 33 09/30/19 11:56 Hgb 14.1 Hct 43.5
--- NOTE | 2019-10-08 15:47 | Discharge Summary ---
Ortho Discharge - [facility] - Patient Instructions Diet: Regular Diet Activity: activity as tolerated, weight bearing as tolerated Total Hip Protocol: Follow activity instructions as provided by Physical Therapy. Dressing Care: Hai Ag - leave on for 5 days - Follow Up Plan Follow Up Appointments: Berto Hanson PA-C [Physician Behavior Therapist] - 10/17/19 10:10 am Disposition: Xfer SNF Prognosis: Good Rehab Potential: Good I certify that the patient requires SNF services: Yes Overall status at discharge: patient is progressing back to baseline - Orders For Discharge Additional Discharge Orders: Physical Therapy at Discharge - [facility] Location: None Selected Toilet Riser Discharge Order Location: None Selected Walker Location: None Selected
[2019-10-08] MEDS ORDERED: CALCIUM CARBONATE 500 MG TAB.CHEW PO PRN (15:54)
[2019-10-08] MEDS: FERROUS SULFATE 325 MG TABLET PO SCH (18:30)
[2019-10-08] MEDS: ACETAMINOPHEN 325 MG TABLET PO SCH (22:34)
[2019-10-08] MEDS: SENNOSIDES 1 TABLET PO SCH (22:34)
[2019-10-09] MEDS: LACTATED RINGERS 1,000 ML IV SCH ×3 (00:37→20:17)
[2019-10-09] MEDS: HYDROcodone/APAP 10/325MG TABLET PO PRN ×2 (02:47→23:06)
[2019-10-09] MEDS: 0.9 % SODIUM CHLORIDE 10 ML SYRINGE IV SCH ×3 (06:44→20:17)
[2019-10-09] MEDS: FERROUS SULFATE 325 MG TABLET PO SCH ×2 (07:08→16:56)
[2019-10-09] MEDS: DILTIAZEM 120 MG CAP.XL.24H PO SCH (07:08)
[2019-10-09] MEDS ORDERED: FAMOTIDINE 20 MG TABLET PO SCH (09:00)
[2019-10-09] MEDS: DOCUSATE SODIUM 100 MG CAPSULE PO SCH ×2 (09:09→20:17)
[2019-10-09] MEDS: FUROSEMIDE 40 MG TABLET PO SCH (09:09)
[2019-10-09] MEDS: ASPIRIN 325 MG ENTERIC COATED TABLET PO SCH ×2 (09:09→20:17)
[2019-10-09] MEDS: FAMOTIDINE 20 MG TABLET PO SCH (09:12)
[2019-10-09] MEDS ORDERED: METOPROLOL TARTRATE 5 MG/5 ML VIAL IV PRN (12:16)
--- NOTE | 2019-10-09 12:25 | Internal Medicine Consult Note ---
Medical - CN: HPI - Data of Consult Consult date: 10/09/19 Requesting physician: Tc Singletary Primary Care Provider: Terence Devries - Consult Narrative Reason for consult: RApid heart rate/ Afib History of present illness: Mr. Singh is a 74-year-old with a history of CHF/A. fib previously on digoxin/Cardizem and metoprolol. Patient has been following up with PCP at [facility]. He was on anticoagulation for short duration on Eliquis but quit taking after episode of GI bleed prohibitively expensive. He however stopped taking all his medications due to episodes of lightheadedness and side effects. He was admitted by orthopedics for elective left hip DJD and underwent left total hip performed on 10/06. On postoperative day 3 patient was was noticed to be in A. fib with RVR with heart rate around 130. He received 1 dose of diltiazem 120 mg and hospitalist service was consulted for management of A. fib RVR. At the time of my evaluation patient is alert and oriented. He was able to answer most questions. Denies chest palpitations, shortness breath, headache, lightheadedness or dizziness. Denies fever chills. He further denies chest pain. Patient clearly does not want to be reinitiated on his prior medications due to side effects that includes him to feel weak dizzy and has been e xperiencing blurred vision. He however consented to using diltiazem 120 mg in lowest possible dose of beta-keren for rate control. He would not want to be initiated on anticoagulation for CVA prophylaxis and would consider taking aspirin instead. I reviewed his prior echocardiogram finding with wall motion abnormality suggestive of IN and the need for beta-keren and PHI inhibitor's. He reiterated that he would only take Cardizem 120 and the lowest dose possible for beta-keren to minimize chance of side effects. Other than that he denies diarrhea, dysuria. He has not been able to sleep over the last 4 days and would want a restful night. He complains of minimal shortness of breath but has responded to the dose of Lasix that was administered this morning. Other than that he is recovering well following surgery and ongoing physical therapy. Review of systems A 10 point review system was performed and is negative except was cussed above CC: Tc Singletary Medical - CN: PM Medical history: Hyperlipidemia Coronary disease Atrial fibrillation GERD History of congestive heart failure last echo 02/2019 LV systolic dysfunction with wall motion abnormality, left atrial enlargement EF not available. Hypertension Degenerative joint disease Spinal stenosis Pulmonary fibrosis Surgical history: Bilateral hip arthroplasties Pertinent family history: Nonremarkable Social history: Intermittent alcohol use No history of substance abuse No history of smoking Medical - CN: Meds Home Medications Medication Instructions Recorded Confirmed Type Acetaminophen [Tylenol Arthritis] 650 mg PO HS 07/08/19 09/30/19 History Aspirin 325 mg PO DAILY 07/08/19 09/30/19 History Famotidine [Pepcid] 20 mg PO DAILY 07/08/19 09/30/19 History Furosemide [Lasix] 40 mg PO DAILY 07/08/19 09/30/19 History Acetaminophen/Diphenhydramine 1 - 2 tab PO HSP PRN 07/09/19 09/30/19 History [Tylenol Pm] Ferrous Sulfate 65 mg PO BIDCC 07/09/19 09/30/19 History Calcium Carbonate [Tums] 1 tab PO DAILYP PRN 07/14/19 09/30/19 History Aspirin [Ecotrin] 325 mg PO DAILY #14 tab.ec 10/08/19 Rx oxyCODONE/APAP [Percocet 5-325 mg] 1 - 2 tab PO Q4H PRN #60 tab 10/08/19 Rx Allergies Allergy/AdvReac Type Severity Reaction Status Date / Time Opioids - Morphine Analogues AdvReac Mild CONSTIPATION/"MADE Verified 09/30/19 11:45 ME FEEL SICK" Medical - CN: Exam - Constitutional Vitals: Temp Pulse Resp BP Pulse Ox 97.5 F 133 H 16 102/67 96 10/09/19 08:00 10/09/19 08:00 10/09/19 08:00 10/09/19 08:00 10/09/19 08:00 General appearance: moderate distress (Anxious) Exam: Alert and oriented Head normocephalic Oral cavity dry No ear nose discharge Neck lymphadenopathy S1-S2 irregular rhythm no murmur Diminished breath sounds bases Abdomen soft nontender nondistended Left hip surgical dressing No lower extremity swelling erythema or cyanosis Psych alert cooperative Skin no suspicious lesion Neuro nonfocal Medical - CN: Result - Labs CBC & Chem 7: 09/30/19 11:56 09/30/19 11:56 Medical - CN: A/P (1) Atrial fibrillation with rapid ventricular response Status: Acute Assessment and plan: * Left total hip postop day 3 managed by orthopedics. Ongoing PT OT Hospitalist consult * Atrial fibrillation with RVR-known history however patient stopped taking medications due to adverse effects. Patient now agrees to start Cardizem at prior dose along with lowest possible dose of beta-keren. Echocardiogram for interval assessment of LV systolic dysfunction, prior echo 2018 reduced EF with wall motion abnormality. Not on anticoagulation. On postoperative DVT prophylaxis aspirin 325 twice daily per orthopedics * History congestive heart failure-repeat echocardiogram. Consider extended- release beta-keren/low-dose PHI inhibitor if patient agreeable * History of degenerative joint disease/spinal stenosis * Hyperlipidemia -not on any medications * Full code * DVT prophylaxis currently on aspirin twice daily per orthopedics Plan * Transfer to telemetry * rate control measures including CCB/low-dose beta-keren * Patient refused to consider initiation of PHI inhibitor * Repeat echocardiogram * High complexity consult. We will continue to follow along
[2019-10-09] MEDS ORDERED: MELATONIN 3 MG TABLET PO PRN (12:46)
[2019-10-09] MEDS ORDERED: METOPROLOL SUCCINATE 25 MG TAB.XL.24H PO ONE (13:00)
[2019-10-09] MEDS ORDERED: DILTIAZEM 125 MG in DEXTROSE 5% IN WATER 100 ML IV SCH (14:30)
[2019-10-09] MEDS: ACETAMINOPHEN 325 MG TABLET PO PRN (16:09)
[2019-10-09] MEDS: ACETAMINOPHEN 325 MG TABLET PO SCH (20:16)
[2019-10-09] MEDS: SENNOSIDES 1 TABLET PO SCH (20:17)
[2019-10-09] MEDS ORDERED: METOPROLOL SUCCINATE 25 MG TAB.XL.24H PO SCH (21:00)
[2019-10-10] MEDS: ACETAMINOPHEN 325 MG TABLET PO PRN (03:09)
[2019-10-10] MEDS: LACTATED RINGERS 1,000 ML IV SCH (05:42)
[2019-10-10] MEDS: 0.9 % SODIUM CHLORIDE 10 ML SYRINGE IV SCH (06:04)
[2019-10-10] MEDS: FERROUS SULFATE 325 MG TABLET PO SCH (07:07)
--- NOTE | 2019-10-10 09:08 | Internal Med Progress Note ---
Medical - PN: Subj Patient information: Note initiated : 10/10/19 at 9:02 am Service Date, if different from initiated Date: [] Patient: Jose Singh 74 y/o M admitted on 10/07/19 for Left Total Hip Arthroplasty. Chief Complaint: [] Interval history: Mr. Singh is a 74-year-old with a history of CHF/A. fib previously on digoxin/Cardizem and metoprolol. Patient has been following up with PCP at [facility]. He was on anticoagulation for short duration on Eliquis but quit taking after episode of GI bleed prohibitively expensive. He however stopped taking all his medications due to episodes of lightheadedness and side effects. He was admitted by orthopedics for elective left hip DJD and underwent left total hip performed on 10/06. On postoperative day 3 patient was was noticed to be in A. fib with RVR with heart rate around 130. He received 1 dose of diltiazem 120 mg and hospitalist service was consulted for management of A. fib RVR. At the time of my evaluation patient is alert and oriented. He was able to answer most questions. Denies chest palpitations, shortness breath, headache, lightheadedness or dizziness. Denies fever chills. He further denies chest pain. Patient clearly does not want to be reinitiated on his prior medications due to side effects that includes him to feel weak dizzy and has been experiencing blurred vision. He however consented to using diltiazem 120 mg in lowest possible dose of beta-keren for rate control. He would not want to be initiated on anticoagulation for CVA prophylaxis and would consider taking aspirin instead. I reviewed his prior echocardiogram finding with wall motion abnormality suggestive of ME and the need for beta-keren and PHI inhibitor's. He reiterated that he would only take Cardizem 120 and the lowest dose possible for beta-keren to minimize chance of side effects. Other than that he denies diarrhea, dysuria. He has not been able to sleep over the last 4 days and would want a restful night. He complains of minimal shortness of breath but has responded to the dose of Lasix that was administered this morning. Other than that he is recovering well following surgery and ongoing physical therapy. 10/10-patient doing well. Off diltiazem drip. Heart rate around 100. Patient now agrees to take metoprolol 6.25/Cardizem 120. Recommend discharging on above. At this time he would not want anticoagulation for CVA prophylaxis except for continuing aspirin. Will be discharged today as per Ortho recommendations with postoperative care and instructions as per orthopedics. Continue PT OT. Recommend follow-up with primary care physician for better management of atrial fibrillation and other prior medical issues. - Constitutional Vitals: Vital Signs Temp Pulse Resp BP Pulse Ox 97.0 F 92 H 18 146/90 97 10/10/19 07:34 10/10/19 04:00 10/10/19 08:00 10/10/19 07:34 10/10/19 08:00 Period Temp Pulse Resp BP Sys/Bucio Pulse Ox Last 24 Hr 97.0 F-101.4 F 92-115 - 71-146/50-90 95-98 Intake and Output 10/09/19 10/10/19 10/10/19 21:59 05:59 13:59 Intake Total 593 500 Output Total 325 200 100 Balance 268 300 -100 Intake & Output: Intake & Output 10/09/19 10/10/19 10/10/19 21:59 05:59 13:59 Intake Total 593 500 Output Total 325 200 100 Balance 268 300 -100 Intake: IV 43 Cardizem 125 mg In Dextrose 5% 43 in Water 100 ml @ 5 MG/HR 5 mls /hr IV Q24H [facility] Rx#:[id number] Oral 550 500 Output: Void Amount 325 200 100 Other: Urine Appearance Clear Clear Clear Urine Color Bright Yellow Dark Yellow Bright Yellow Urine Odor Normal Normal Normal General appearance: no acute distress Exam: Alert oriented Nonlabored breathing No anxiety Heart rate variable 110 A. fib Medical - PN: Obj Da - Labs CBC & Chem 7: 09/30/19 11:56 09/30/19 11:56 Meds: Medications Acetaminophen (Tylenol) 650 mg PO Q6HP PRN; Protocol PRN Reason: Per Pain Protocol/Fever > 101 Last Admin: 10/10/19 03:09 Dose: 650 mg Documented by: Acetaminophen (Tylenol) 650 mg PO [facility] Last Admin: 10/09/19 20:16 Dose: 650 mg Documented by: Hydrocodone Bitart/Acetaminophen ([place] 10/325mg) 0 tab PO Q4HP PRN; Protocol PRN Reason: Per Pain Protocol Last Admin: 10/09/19 23:06 Dose: 1 tab Documented by: Aspirin (Ecotrin) 325 mg PO BID [facility] Last Admin: 10/09/19 20:17 Dose: 325 mg Documented by: Bisacodyl (Dulcolax) 10 mg WA Q2-3DAYS PRN PRN Reason: Constipation Calcium Carbonate/Glycine (Tums) 1,000 mg CHEWED Q4HP PRN PRN Reason: Heartburn Last Admin: 10/07/19 15:49 Dose: 1,000 mg Documented by: Calcium Carbonate/Glycine (Tums) 500 mg PO DAILYP PRN PRN Reason: Heartburn Diltiazem HCl (Cardizem Sr) 120 mg PO DAILY [facility] Last Admin: 10/09/19 07:08 Dose: 120 mg Documented by: Docusate Sodium (Colace) 100 mg PO BID [facility] Last Admin: 10/09/19 20:17 Dose: Not Given Documented by: Famotidine (Pepcid) 20 mg PO DAILY [facility] Last Admin: 10/09/19 09:12 Dose: 20 mg Documented by: Ferrous Sulfate (Ferrous Sulfate) 325 mg PO BIDCC [facility] Last Admin: 10/10/19 07:07 Dose: Not Given Documented by: Furosemide (Lasix) 40 mg PO DAILY [facility] Last Admin: 10/09/19 09:09 Dose: 40 mg Documented by: Hydromorphone HCl (Dilaudid) 0 mg IV Q2HP PRN; Protocol PRN Reason: Per Pain Protocol Lactated Ringer's (Lactated Ringers) 1,000 mls @ 100 mls/hr IV .Q10H [facility] Last Admin: 10/10/19 05:42 Dose: Not Given Documented by: Diltiazem HCl 125 mg/ Dextrose 125 mls @ 5 mls/hr IV Q24H [facility]; Protocol Last Titration: 10/09/19 20:30 Dose: 0 mg/hr, 0 mls/hr Documented by: Magnesium Hydroxide (Milk Of Magnesia) 30 ml PO BIDP PRN PRN Reason: Constipation Last Admin: 10/09/19 02:47 Dose: 30 ml Documented by: Melatonin (Melatonin 3mg Tablet) 6 mg PO HSP PRN PRN Reason: Sleep Metoprolol Succinate (Toprol Xl) 6.25 mg PO HS [facility] Last Admin: 10/09/19 20:16 Dose: 6.25 mg Documented by: Ondansetron HCl (Zofran) 4 mg IV Q4HP PRN; Protocol PRN Reason: Nausea And Vomiting Polyethylene Glycol (Miralax) 17 gm PO DAILYP PRN PRN Reason: Constipation Senna (Senokot) 2 tab PO HS [facility] Last Admin: 10/09/19 20:17 Dose: Not Given Documented by: Sodium Biphosphate/Sodium Phosphate (Fleets Adult) 1 dose WA Q3-4DAYS PRN PRN Reason: Constipation Sodium Chloride (Saline Flush) 10 ml IV Q8 [facility] Last Admin: 10/10/19 06:04 Dose: 10 ml Documented by: Temazepam (Restoril) 15 mg PO HSP PRN PRN Reason: Insomnia Last Admin: 10/07/19 20:49 Dose: 15 mg Documented by: Throat Lozenges (Cepacol) 1 lozenge PO PRN PRN PRN Reason: Sore Throat Medical - PN: A/P - Time Spent With Patient Total time spent is greater than 50% in coordination of care (as documented) at patient's floor/unit and/or counseling patient: 25 - 35 minutes (1) Atrial fibrillation with rapid ventricular response Status: Acute Assessment and plan: * Left total hip postop day 4 managed by orthopedics. Ongoing PT OT. Discharg ing to SNF per Ortho recommendations Hospitalist consult * Atrial fibrillation with RVR-known history however patient stopped taking medications after experiencing adverse effects. Initially managed on diltiazem drip and now transitioned to Cardizem 120/metoprolol 6.25. Patient agrees to continue Cardizem and beta-keren. Not on anticoagulation despite recommendations as per Johnny score. 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 Recommend outpatient cardiology follow- up. Recommend low-dose PHI inhibitor/extremities beta-keren. At this time patient unwilling to take PHI inhibitor's. * History of degenerative joint disease/spinal stenosis * Hyperlipidemia -recommend statin * Full code * DVT prophylaxis currently on aspirin twice daily per orthopedics Plan * Discharge as per orthopedic conditions. * rate control measures including CCB/low-dose beta-keren * Recommend follow-up with cardiology and primary care physician Current Visit: Yes
[2019-10-10] MEDS ORDERED: DILTIAZEM 125 MG in DEXTROSE 5% IN WATER 100 ML IV PRN (09:15)
[2019-10-10 09:29] LABS: Basophils # (Auto) 0.04 K/mcL (0.00-0.30); Basophils % (Auto) 0.3 % (0.0-2.0); Eosinophils % (Auto) 2.6 % (0.0-7.0); Granulocytes % (Auto) 74.8 % (38.0-78.0); Hematocrit 34.7 % (40.1-51.0); Hemoglobin 11.2 g/dL (13.7-17.5); Lymphocytes # (Auto) 2.05 K/mcL (1.50-4.80); Lymphocytes % (Auto) 13.1 % (15.5-49.0); Mean Corpuscular HGB Conc 32.3 g/dL (31.0-36.0); Mean Platelet Volume 11.3 fL (7.4-10.4); Monocytes # (Auto) 1.43 K/mcL (0.10-0.90); Monocytes % (Auto) 9.2 % (1.0-12.0); Platelet Count 193 K/mcL (140-440); RBC 3.54 M/mcL (4.63-6.08); Red Cell Distribution Width 12.8 % (11.5-14.5); WBC 15.6 K/mcL (4.50-11.00)
[2019-10-10 09:49] LABS: ALT/SGPT 8 U/l (0-40); AST/SGOT 27 U/l (0-37); Alkaline Phosphatase 90 U/L (39-117); Bilirubin,Direct < 0.2 mg/dL (0.0-0.3); Bilirubin,Total 0.5 mg/dL (0.0-1.0); Blood Urea Nitrogen 22 mg/dl (8-23); Calcium 9.2 mg/dl (8.6-10.4); Carbon Dioxide 27 mmol/L (22-30); Chloride 100 mmol/L (96-108); Globulin 3.1 gm/dL (2.2-3.7); Glomerular Filtration Rate 59; Glucose 83 mg/dL (70-105); Lactate Dehydrogenase 242 U/L (94-250); Phosphorous 2.7 mg/dL (2.7-4.5); Triglycerides 71 mg/dl (<150); Uric Acid 7.8 mg/dL (2.5-8.0)
[2019-10-10] MEDS: FAMOTIDINE 20 MG TABLET PO SCH (09:57)
[2019-10-10] MEDS: DILTIAZEM 120 MG CAP.XL.24H PO SCH (09:57)
[2019-10-10] MEDS: ASPIRIN 325 MG ENTERIC COATED TABLET PO SCH (09:57)
[2019-10-10] MEDS: FUROSEMIDE 40 MG TABLET PO SCH (09:57)
[2019-10-10] MEDS: DOCUSATE SODIUM 100 MG CAPSULE PO SCH (09:57)
--- NOTE | 2019-10-17 08:40 | Discharge Summary ---
DATE OF ADMISSION: 10/07/2019 DATE OF DISCHARGE: 10/10/2019 ADMITTING DIAGNOSIS: Left degenerative osteoarthritis of the hip. DISCHARGE DIAGNOSIS: Left degenerative osteoarthritis of the hip with the addition of left total hip arthroplasty, and new onset atrial fibrillation. DISCHARGE CONDITION: Stable. CONSULTATIONS: None. PROCEDURE PERFORMED: Left total hip arthroplasty was completed on the date of admission. The procedure went without complications and there was minimal blood loss. Following the procedure the patient was taken to recovery room in stable condition. When deemed stable, was taken to the hospital floor for further observation and recovery. HISTORY OF PRESENT ILLNESS: This pleasant patient has exhausted conservative care measures in the office that has included trials with anti-inflammatories, pain medications, injections and physical therapy. The patient has discussed non-operative and operative options with Dr. Singletary at length. Due to the exhausting conservative measures the patient desired to proceed forth with operative care. HOSPITAL COURSE: The patient remained stable throughout the hospital course and exhibited normal neurovascular examinations throughout the stay. The patient worked with physical therapy per standard protocols. The patient had no incidents during the hospital course. On postoperative day 3, the patient was found to have an increased heart rate. EKG was obtained and he was found to be in atrial fibrillation. A hospitalist consultation was then obtained, and he managed the patient medically thereafter until he was stable upon discharge on 10/10-see hospitalist's discharge note and instructions regarding his medical care and medical stability regarding atrial fibrillation. DISCHARGE PHYSICAL EXAMINATION: VITAL SIGNS: Stable as above. GENERAL: Patient is awake, alert and oriented x3. HEENT: Head was normocephalic. NECK: Supple, no adenopathy or thyromegaly. CHEST: CTA, no wheezing, rhonchi or rales. HEART: NSR, no gallops, rubs or murmurs. MUSCULOSKELETAL: Lower extremities revealed grossly intact motor exam. NEUROLOGIC: Deep tendon response and light touch, motor, neurosensory exam was stable. SKIN: The incision was intact and the dressing had been changed to the Acticoat dressing. There were no abnormal skin markings, lesions, erythema, rashes or other skin breakdown. DISCHARGE INSTRUCTIONS/MEDICATIONS: The patient received our standard written discharge instruction sheet. These instructions included information regarding weightbearing status, activity level, diet, wound care, physical therapy instructions, bathing restrictions, shower recommendations, follow-up guidelines, driving restrictions and monitoring the wound for signs of infection that could include but not necessarily to fevers above 101.5, sweats, chills, redness, increased pain or drainage. Should any of these occur the patient was educated to contact our office at once. MEDICATIONS: The patient was restarted on normal primary care medications. Patient was also prescribed [place] 10/325 mg with instructions for 1 to 2 tabs by mouth every 4 to 6 hours as needed for pain, quantity 75 with 2 refills. The patient will be placed on 325 mg aspirin, #1 a day for 30 days post-surgery. [facility] will monitor the patient's PT/INR. FOLLOWUP: Patient will follow up at [facility] 2 weeks from surgery for a postop wound check and staple removal. They will be able to certain follow up sooner with any problems or concerns. BAP:katina Job ID: [id number] Doc ID: [id number] Berto Hanson PA-C
== END 2019-10-10 10:40 | DRG 470 ==
LOC: SUR 07:25 → MEDSUR 07:26 → ICU 10-09 14:18
PROVIDERS: ADMIT Orthopaedic Surgery; ATTEND Orthopaedic Surgery